=== PATIENT | male | born 1960 | race Caucasian/White ===

== ENCOUNTER → 2020-03-13 11:24 | Outpatient (CLI) | payer OTHER, SELFPAY ==
--- NOTE | ~2020-03-13 | XR_ITS ---
EXAMINATION: XR foot RT min 3V DATE: 03/13/2020 11:42 INDICATION: Swelling about the right second distal metatarsal. TECHNIQUE: Dorsoplantar, two oblique and lateral views of the right foot were obtained. COMPARISON: None. FINDINGS: Alignment is normal. No fracture. Joint spaces are normal. No cortical erosions or periosteal reactio n. Small Achilles and plantar calcaneal spurs. Soft tissues are unremarkable. IMPRESSION: 1. No acute osseous abnormality. Reviewed, dictated and finalized at location A. DRIVER
== END ==
PROVIDERS: PCP Family Medicine Adolescent Medicine; Visit Provider Family Medicine Adolescent Medicine
DX: M79.89 Other specified soft tissue disorders (principal)
CPT/HCPCS: 73630

== ENCOUNTER → 2020-10-11 11:06 | Outpatient (CLI) | payer OTHER, SELFPAY ==
--- NOTE | ~2020-10-11 | XR_ITS ---
XR_[id number]_CR DATE: 10/11/2020 11:55 INDICATION: Injury. Left chest wall pain. TECHNIQUE: PA chest. 4 views of the left ribs. COMPARISON: None FINDINGS: Normal heart size. Aortic arch calcification. No hilar or mediastinal enlargement. Calcifie d right pulmonary granuloma. No pulmonary infiltrate or consolidation, pleural effusion or pulmonary vascular congestion or pneumothorax. There is diffuse osteopenia. No displaced left rib fracture is evident. Degenerative spurring of the thoracic spine. IMPRESSION: No detected left rib fracture Osteopenia Reviewed, dictated and finalized at Location A. Reviewed, dictated and finalized at location A.
== END ==
PROVIDERS: PCP Family Medicine Adolescent Medicine; Visit Provider Family Medicine Adolescent Medicine
DX: S29.9XXA Unspecified injury of thorax, initial encounter (principal); M85.88 Other specified disorders of bone density and structure, other site
CPT/HCPCS: 71101

== ENCOUNTER 2022-01-09 14:45 | Outpatient (CLI) | payer BC, SELFPAY ==
--- NOTE | ~2022-01-09 | CT_ITS ---
EXAMINATION: CT lung screening DATE: 01/09/2022 15:14 INDICATION: Personal history of nicotine dependence, prior smoker with 40 pack year history TECHNIQUE: Computed tomography (CT) of the chest was performed without intravenous contrast. The dose -length product (DLP) was 325.48 mGy-cm. Automated exposure control and iterative reconstruction tech [employer] were employed. COMPARISON: None FINDINGS: There is moderate emphysema. There is a 3 mm nodule of the right lower lobe. Calcified pulm onary nodules and calcified subcarinal and right hilar lymph nodes are consistent with old granulomat ous disease. No pleural effusion or pneumothorax. No pathologically enlarged thoracic lymph nodes are identified. The heart size is normal. Calcified coronary artery atherosclerosis is noted. There is m oderate thoracic spondylosis. IMPRESSION: 1. Lung-RADS category 2: Benign appearance or behavior. Continue annual screening with noncontrast lo w-dose chest CT in 12 months. Reviewed, dictated and finalized at location F. LE LEADER IMPRESSION: 1. Lung-RADS category 2: Benign appearance or behavior. Continue annual screeni ng with noncontrast low-dose chest CT in 12 months.
== END 2022-01-09 14:46 | disposition home or self-care (01) ==
PROVIDERS: PCP Family Medicine Adolescent Medicine; Visit Provider Family Medicine Adolescent Medicine
DX: Z12.2 Encounter for screening for malignant neoplasm of respiratory organs (principal); Z87.891 Personal history of nicotine dependence
CPT/HCPCS: 71271

== ENCOUNTER 2023-01-19 01:04 | Day surgery (SDC) | payer BC, SELFPAY ==
[2023-01-12 08:18] VITALS: BMI 40.4
--- NOTE | 2023-01-14 09:42 | SUR.PREOP ---
Patient called regarding upcoming procedure. Reviewed preop instructions, appointment times, and procedure prep.
[2023-01-19 12:06] VITALS: BP 145/101; PULSE 67; RESP 18; TEMP 36.3; O2SAT 100
[2023-01-19] MEDS: LACTATED RINGERS 1,000 ML 150 ML IV CONT (12:24)
--- NOTE | 2023-01-19 12:28 | WPDANESEPPF ---
Anes - Initial Pre Proc Eval Procedure: Operation Date: 01/19/23 13:30 Proposed Procedures p Colonoscopy - Kan Lorenzo MD Date/Time: 01/19/23 12:28 Surgeon: Kan Lorenzo MD Pre Op Diagnosis: Anal Abscess,hemorrhoids Patient Data Age: 62 Gender: M Height: 1.68 m Weight: 108.7 kg Last Vital Signs Temp 97.3 F L 01/19/23 12:06 Pulse 67 01/19/23 12:06 Resp 18 01/19/23 12:06 BP 145/101 H 01/19/23 12:06 Pulse Ox 100 01/19/23 12:06 O2 Del Method Room Air 01/19/23 12:06 Allergies Allergy/AdvReac Type Severity Reaction Status Date / Time No Known Allergies Allergy Verified 01/19/23 12:05 Home Medications Medication Instructions Recorded Confirmed Type escitalopram oxalate 10 mg tablet 10 mg PO DAILY #90 tabs 12/18/22 01/12/23 Rx lisinopril 20 mg tablet 20 mg PO DAILY #90 tabs 12/18/22 01/12/23 Rx omeprazole 20 mg capsule,delayed 20 mg PO DAILY #90 caps 12/18/22 01/12/23 Rx release tamsulosin 0.4 mg capsule 0.4 mg PO DAILY #90 caps 12/18/22 01/12/23 Rx atorvastatin 10 mg tablet 10 mg PO DAILY 01/12/23 01/12/23 History Patient hx anesthesia problems: none Family hx anesthesia problems: none Results Review: All pre-operative results and documents have been reviewed as part of the pre-operative evaluation. [facility] Past Medical History Medical History Depression Essential (primary) hypertension Gastro-esophageal reflux disease without esophagitis Mitral valve prolapse Pure hypercholesterolemia, unspecified Surgical History Surgical History History of excision of pilonidal cyst x2 Hx of tonsillectomy Family History Family History Father Acute myocardial infarction Hypertension Malignant neoplasm of prostate Lung cancer Mother Acute myocardial infarction Lung cancer Social History Social History Smoking status: Current every day smoker Tobacco type: cigarettes and e-cigarettes/vaping Alcohol intake: current Drinks per week: 4 Alcohol use details: beer Substance use type: does not use Lack of Transportation: No Lack of Food: Never True Current Housing: I Have Housing Concerned About Future Housing: No Difficulty Paying Gas/Electric Bills: No Difficulty Paying for Meds: No Currently Unemployed: No Education: High School Diploma/GED Difficulty w/ Childcare or Family Care: No Living arrangements: with family Occupation/Education: retired Spiritual care concerns: No Anes - Eval Final PreProcedure Day of Procedure 01/19/23 12:28 Patient weight: obese Heart: regular rate and rhythm Lungs: clear to auscultation Airway: Mallampati scale class II Neurological: alert and oriented Last oral intake: >/= 8 hours ASA classification: III Emergent: no Anesthetic plan: proceed Anesthesia type and monitoring: general GIVS and standard monitoring Results Review: All pre-operative results and documents have been reviewed as part of the pre-operative evaluation. Informed Consent: The patient's anesthetic plan and its attendant risks and benefits were discussed with the patient/family/POA. Questions were solicited and answers provided to the satisfaction of the patient/family/POA.
--- NOTE | 2023-01-19 12:40 | PM.HPGS ---
History of Present Illness History of Present Illness Consent: Risks, benefits, and alternatives have been discussed and questions answered. Patient agrees to proceed with procedure. Chief complaint: Anal Abscess,hemorrhoids Narrative: Antonio Becker is a 62 year old male here for first screening colonoscopy, also history of perianal abscess Review of Systems Constitutional: Constitutional: Denies headache(s) and Denies weakness Eyes: Eyes: Denies blurry vision ENT: Reports Normal hearing present, Denies headache(s) and Denies neck pain Cardiovascular: Cardiovascular: Denies chest pain and Denies dyspnea Respiratory: Respiratory: Denies dyspnea Gastrointestinal: Gastrointestinal: Reports no additional gastrointestinal complaints Genitourinary: Genitourinary: Denies dysuria Musculoskeletal: Musculoskeletal: Denies neck pain Integumentary/Breasts: Skin/Breast: Denies dry skin Neurologic: Reports Normal hearing present, Denies headache(s) and Denies weakness Psychiatric: Psychiatric: Denies anxiety Endocrine: Endocrine: Denies change in body appearance Hematologic/Lymphatic: Hematologic/Lymphatic: Denies easy bleeding Allergic/Immunologic: Allergic/Immunologic: Denies urticaria PMFSH Past Medical History Medical History (Updated 01/19/23 @ 12:41 by Kan Lorenzo MD) Colon cancer screening Depression Essential (primary) hypertension Gastro-esophageal reflux disease without esophagitis Mitral valve prolapse Pure hypercholesterolemia, unspecified Surgical History Surgical History History of excision of pilonidal cyst x2 Hx of tonsillectomy Family History Family History Father Acute myocardial infarction Hypertension Malignant neoplasm of prostate Lung cancer Mother Acute myocardial infarction Lung cancer Social History Social History Smoking status: Current every day smoker Tobacco type: cigarettes and e-cigarettes/vaping Alcohol intake: current Drinks per week: 4 Alcohol use details: beer Substance use type: does not use Lack of Transportation: No Lack of Food: Never True Current Housing: I Have Housing Concerned About Future Housing: No Difficulty Paying Gas/Electric Bills: No Difficulty Paying for Meds: No Currently Unemployed: No Education: High School Diploma/GED Difficulty w/ Childcare or Family Care: No Living arrangements: with family Occupation/Education: retired Spiritual care concerns: No Meds Home Medications and Allergies Home Medications Medication Instructions Recorded Confirmed Type escitalopram oxalate 10 mg tablet 10 mg PO DAILY #90 tabs 12/18/22 01/12/23 Rx lisinopril 20 mg tablet 20 mg PO DAILY #90 tabs 12/18/22 01/12/23 Rx omeprazole 20 mg capsule,delayed 20 mg PO DAILY #90 caps 12/18/22 01/12/23 Rx release tamsulosin 0.4 mg capsule 0.4 mg PO DAILY #90 caps 12/18/22 01/12/23 Rx atorvastatin 10 mg tablet 10 mg PO DAILY 01/12/23 01/12/23 History Allergies Allergy/AdvReac Type Severity Reaction Status Date / Time No Known Allergies Allergy Verified 01/19/23 12:05 Vital Signs Vital Signs - 24 hr 01/19/23 12:06 Temperature 97.3 F L Pulse Rate 67 Respiratory Rate 18 Blood Pressure 145/101 H Pulse Oximetry 100 Oxygen Delivery Room Air Exam Const: General: comfortable and no acute distress HENMT: Face/Nose/Sinus: Normal nares present Eyes: General: appearance normal, both eyes and all related structures Neck: Neck: no JVD Resp: Auscultation: clear to auscultation bilaterally Cardio: Rate: regular rate Rhythm: regular rhythm GI: Inspection: non-distended GI Palp: Yes Soft to palpation Skin: General skin exam: normal color Neuro: General: gait normal Speech: normal speech Extrem: General: normal t
[2023-01-19 13:02] VITALS: BP 108/72; PULSE 73; RESP 20; O2SAT 96
[2023-01-19 13:12] VITALS: BP 111/78; PULSE 65; RESP 25; O2SAT 97
[2023-01-19 13:22] VITALS: BP 137/72; PULSE 65; RESP 23; O2SAT 99
== END 2023-01-19 13:26 | disposition home or self-care (01) ==
PROVIDERS: PCP Family Medicine Adolescent Medicine; Visit Provider Internal Medicine Gastroenterology
PROC: 0DJD8ZZ Inspection of Lower Intestinal Tract, Via Natural or Artificial Opening Endoscopic (ICD-10-PCS; CPT 45378; principal; 2023-01-19 13:30)
DX: Z12.11 Encounter for screening for malignant neoplasm of colon (principal); K57.30 Diverticulosis of large intestine without perforation or abscess without bleeding; K64.8 Other hemorrhoids; K64.4 Residual hemorrhoidal skin tags; F32.A Depression, unspecified; I10 Essential (primary) hypertension; K21.9 Gastro-esophageal reflux disease without esophagitis; E78.00 Pure hypercholesterolemia, unspecified; F17.210 Nicotine dependence, cigarettes, uncomplicated; F17.290 Nicotine dependence, other tobacco product, uncomplicated; F10.90 Alcohol use, unspecified, uncomplicated; Z79.899 Other long term (current) drug therapy
CPT/HCPCS: 45378; J2001; J2704; J7120

== ENCOUNTER 2023-01-27 12:39 | Outpatient (CLI) | payer BC, SELFPAY ==
--- NOTE | 2023-01-27 12:57 | ECG_ITS ---
Measurements Intervals [place] Rate: 64 P: 44 CT: 216 QRS: 32 QRSD: 93 T: 13 QT: 360 QTc: 374 Interpretive Statements SINUS RHYTHM WITH FIRST DEGREE AV BLOCK LOW QRS VOLTAGE IN PRECORDIAL LEADS [QRS DEFLECTION < 1.0 mV IN CHEST LEADS] NO PREVIOUS ECG AVAILABLE FOR COMPARISON Electronically Signed On 01-27-2023 13:37:53 [employer] by Celestina Bauman M.D.
== END 2023-01-27 12:40 | disposition home or self-care (01) ==
LOC: ANHSURGERY 12:44
PROVIDERS: PCP Family Medicine Adolescent Medicine; Visit Provider Surgery
DX: Z01.818 Encounter for other preprocedural examination (principal); I10 Essential (primary) hypertension; E78.00 Pure hypercholesterolemia, unspecified; E11.9 Type 2 diabetes mellitus without complications; R93.1 Abnormal findings on diagnostic imaging of heart and coronary circulation
CPT/HCPCS: 93005

== ENCOUNTER 2023-01-29 02:10 | Day surgery (SDC) | payer BC, SELFPAY ==
[2023-01-27 12:02] VITALS: BMI 39.0
--- NOTE | 2023-01-27 12:03 | PC.NURSE ---
Report to the Outpatient Waiting Room, entrance under the green pavilion located off [facility], at time _0900_ on date _[id number]_. Planned Procedure Time: _1100_. Time changes happen often and if your time is changed the preop area will call you the afternoon before. - You and your visitor will be asked to self-screen and do not enter if you have any COVID symptoms. - A mask is optional within the hospital at this time. Patients may have clear liquids (water, carbonated beverages, clear teas, apple juice) until 3 hours prior to surgery with a maximum of 20 ounces. - No food from midnight until time of surgery Take the following medications with a SIP of water the morning of surgery: ____None DO NOT STOP ANY OF YOUR OTHER PRESCRIPTION MEDICATIONS PRIOR TO SURGERY ?EXCEPT THE FOLLOWING Medications to discontinue per physician ____L-lysine Date to take last dose__Stop today. Please no make-up, nail french, hairspray, perfume, deodorant, or body powder the day of surgery. No jewelry (including any body piercings) or valuables the day of surgery, leave them at home. Please take a shower or bath the night before, or the morning of, surgery with an antibacterial soap. Wear comfortable, loose fitting clothing. - Jewelry must be removed prior to entering the operating room. Rings and piercings that are not removed may be cut off. - The hospital will not accept responsibility for valuables. - Please leave all valuables, including medications, at home the day of surgery. If you are going home after surgery, a licensed straight truck driver must drive you home. - NO public transportation without another adult if you receive anesthesia. - We recommend that an adult stay with you for 24 hours following discharge. - We also recommend that you do not drive, make important decision, drink alcoholic beverages, or take any drugs that were not prescribed by your health care provider for at least 24 hours after your discharge time. Follow any additional instructions given to you from your surgeon. If you or anyone in your household have experienced Covid symptoms in the past week, please notify your surgeon or the nurse liaison at the phone number below for possible testing. Telephone instructions given to _Jim__and asked if any additional questions and then verbalized understanding. Patient advised to call surgeon office or pre surgery nurse liaison [phone] if any additional questions.
[2023-01-29] VITALS (7 sets, daily range): BP systolic 123–149; BP diastolic 61–87; PULSE 60–97; RESP 12–20; TEMP 36.1–36.4; O2SAT 91–100
--- NOTE | 2023-01-29 07:27 | WPDHPUPDATE1 ---
History and Physical Update Update Date/Time: 01/29/23 07:27 History and Physical has been reviewed, including an updated exam of the patient. There are NO changes in the patient's condition. Risks, benefits, and alternatives have been discussed and questions answered. Patient agrees to proceed with procedure.
[2023-01-29 09:44] LABS: Glucose Point of Care 110 mg/dl (65-105)
[2023-01-29] MEDS: LACTATED RINGERS 1,000 ML 30 ML IV CONT ×2 (09:45→11:38)
[2023-01-29] MEDS: ACETAMINOPHEN 500 MG TABLET 1000 MG PO (09:45)
[2023-01-29] MEDS: KETOROLAC 15 MG/ML VIAL (*BKC) IV PUSH (09:45)
--- NOTE | 2023-01-29 10:15 | WPDANESEPPF ---
Anes - Initial Pre Proc Eval Procedure: Operation Date: 01/29/23 11:00 Proposed Procedures p Rectal Examination Under Anesthesia with Excision of Abscess Cavity, Hemorrhoidectomy - Melissa High MD Date/Time: 01/29/23 10:15 Surgeon: Melissa High MD Pre Op Diagnosis: perianal abscess,external hemorrhoids Patient Data Age: 62 Gender: M Height: 1.69 m Weight: 111.4 kg Last Vital Signs Temp 36.1 C L 01/29/23 09:45 Pulse 70 01/29/23 09:45 Resp 14 01/29/23 09:45 BP 144/87 H 01/29/23 09:45 Pulse Ox 94 01/29/23 09:45 O2 Del Method Room Air 01/29/23 09:45 Allergies Allergy/AdvReac Type Severity Reaction Status Date / Time No Known Allergies Allergy Verified 01/29/23 10:06 Home Medications Medication Instructions Recorded Confirmed Type escitalopram oxalate 10 mg tablet 10 mg PO DAILY #90 tabs 12/18/22 01/27/23 Rx lisinopril 20 mg tablet 20 mg PO DAILY #90 tabs 12/18/22 01/27/23 Rx omeprazole 20 mg capsule,delayed 20 mg PO DAILY #90 caps 12/18/22 01/27/23 Rx release tamsulosin 0.4 mg capsule 0.4 mg PO DAILY #90 caps 12/18/22 01/27/23 Rx atorvastatin 10 mg tablet 10 mg PO DAILY 01/12/23 01/27/23 History lysine 1,000 mg tablet 1,000 mg PO DAILY 01/27/23 01/27/23 History Laboratory Tests 01/29/23 09:41 POC Capillary Glucose 110 H mg/dl (65-105) Patient hx anesthesia problems: none Family hx anesthesia problems: none Results Review: All pre-operative results and documents have been reviewed as part of the pre-operative evaluation. [facility] Past Medical History Medical History Colon cancer screening Depression Essential (primary) hypertension Gastro-esophageal reflux disease without esophagitis Mitral valve prolapse Pure hypercholesterolemia, unspecified Surgical History Surgical History History of excision of pilonidal cyst x2 Hx of tonsillectomy Family History Family History Father Acute myocardial infarction Hypertension Malignant neoplasm of prostate Lung cancer Mother Acute myocardial infarction Lung cancer Social History Social History Smoking status: Former smoker Tobacco type: cigarettes and e-cigarettes/vaping Smoking end date: 10/01/13 Alcohol intake: current Drinks per week: 2 Alcohol use details: beer Substance use type: does not use Lack of Transportation: No Lack of Food: Never True Current Housing: I Have Housing Concerned About Future Housing: No Difficulty Paying Gas/Electric Bills: No Difficulty Paying for Meds: No Currently Unemployed: No Education: High School Diploma/GED Difficulty w/ Childcare or Family Care: No Living arrangements: with family Occupation/Education: retired Spiritual care concerns: No Anes - Eval Final PreProcedure Day of Procedure 01/29/23 10:15 Patient weight: obese Heart: regular rate and rhythm Lungs: clear to auscultation Airway: Mallampati scale class II Neurological: alert and oriented Last oral intake: >/= 8 hours ASA classification: III Emergent: no Anesthetic plan: proceed Anesthesia type and monitoring: general Results Review: All pre-operative results and documents have been reviewed as part of the pre-operative evaluation. Informed Consent: The patient's anesthetic plan and its attendant risks and benefits were discussed with the patient/family/POA. Questions were solicited and answers provided to the satisfaction of the patient/family/POA.
[2023-01-29] MEDS: ceFAZolin 2 GM/D5W 50 ML 2 GM/50 ML BAG IVPB (10:58)
[2023-01-29] MEDS: BUPIVACAINE/EPINEPHRINE 0.5% 50 ML VIAL INFILTRATE (11:15)
[2023-01-29] MEDS: LIDOCAINE HCL 2% GEL UROJET 10 ML PKG MUCOUS MEM (11:22)
--- NOTE | 2023-01-29 11:38 | P.OP_ITS ---
Procedure Note - Detailed Date of Procedure 01/29/23 Pre-op Diagnosis chronic perianal abscess, external hemorrhoids Post-op Diagnosis Same Procedure Performed Exam under anesthesia, external hemorrhoidectomy involving left lateral and ri ght anterior positions, excision of chronic perianal abscess cavity Surgeon Melissa High MD Anesthesia General Indications 62 y/o M c multiple external hemorrhoids c frequent flares causing pain, bleeding refractory to conservative measures. Patient also with noted chronic perianal abscess cavity. Findings multiple external hemorrhoids predominately in L lateral and R anterior, perianal chronic abscess cavity Description of Procedure The patient was taken to the operating room and placed in the modified lithotomy position. After adequate induction of general anesthesia, the patient was prepped and draped in the normal sterile fashion. A time-out was then done to verify the patient's identity, as well as the procedure being performed. I began by doing a digital exam. There was noted to be multiple external hemorrhoids, however no internal hemorrhoids were noted. At this point, a bilateral pudendal block was done. Then used the lone Star retractor to fur ther evaluate the anal canal as well as rectum, other than external hemorrhoids no other pathology was noted. I then began excising the external hemorrhoids using the hand-held LigaSure device. The hemorrhoids were noted to be in the left lateral and right anterior positions. Multiple hemorrhoids were excised using the LigaSure. The specimens will be sent to pathology for further review. Hemostasis was noted at all excision sites. I then placed a piece of Gelfoam covered with lidocaine jelly into the rectal vault. The patient also had a chronic abscess cavity in the perineum. I went ahead and excised this cavity with an elliptical incision. The cavity was noted to be in the subcutaneous tissue and excised in full. I then gained hemostasis with the Bovie cautery. No other pathology was noted. I then closed the subcutaneous tissue with 3-0 Vicryl suture. The skin was closed with 4-0 Monocryl subcuticular suture. The patient tolerated the procedure well and was extubated in the operating room postop. He will be transferred to the recovery room in stable condition. Implants Gelfoam covered with lidocaine jelly in the rectal vault Estimated Blood Loss 5 Drains No Packing Yes Pathology Yes Complications No immediate complications Condition Stable Disposition PACU [facility] Billing Surgery - Charge Forward: Surgery Billing
[2023-01-29] MEDS: fentaNYL CITRATE INJ (*CRX) 100 MCG/2 ML VIAL 25 MCG IV PUSH ×4 (11:57→12:15)
[2023-01-29] MEDS: oxyCODONE HCL (*CRX) 5 MG TAB IR PO (12:55)
== END 2023-01-29 13:22 | disposition home or self-care (01) ==
PROVIDERS: PCP Family Medicine Adolescent Medicine; Visit Provider Surgery
PROC: (CPT 11424; principal; 2023-01-29 11:00)
DX: K64.4 Residual hemorrhoidal skin tags (principal); L02.215 Cutaneous abscess of perineum; L72.0 Epidermal cyst; I10 Essential (primary) hypertension; E78.00 Pure hypercholesterolemia, unspecified; I34.1 Nonrheumatic mitral (valve) prolapse; K21.9 Gastro-esophageal reflux disease without esophagitis; F32.A Depression, unspecified; Z87.891 Personal history of nicotine dependence; E66.9 Obesity, unspecified; Z68.39 Body mass index [BMI] 39.0-39.9, adult
CPT/HCPCS: 11424; 12041; 46250; 82948; 88304; 93005; A9270; J0690; J1100; J1885; J2405; J2704; J3010; J7120

== ENCOUNTER → 2024-12-20 08:15 | Outpatient (CLI) | payer BC, SELFPAY ==
--- NOTE | ~2024-12-20 | XR_ITS ---
EXAMINATION: XR_RIBSBI_CR, 12/20/2024 8:22 CDT HISTORY: R07.89 RT side rib/side pain,7x months, no injury COMPARISON: No comparisons available. Findings: No acute fracture or malalignment. No significant degenerative changes. Soft tissues unremarkable. Impression: No acute fracture or malalignment. Reviewed, dictated and finalized at location P. Impression: No acute fracture or malalignment.
== END ==
LOC: EXPCRAD 08:17
PROVIDERS: PCP Family Medicine; Visit Provider Family Medicine
DX: R07.89 Other chest pain (principal)
CPT/HCPCS: 71110

== ENCOUNTER 2024-12-31 08:43 | Outpatient (CLI) | payer BC, SELFPAY ==
--- NOTE | ~2024-12-31 | CT_ITS ---
EXAMINATION: CT abdomen w con DATE: 12/31/2024 09:24 INDICATION: Right upper quadrant abdominal pain. TECHNIQUE: Computed tomography (CT) of the abdomen was performed with 100 mL Omnipaque 350 intravenous contrast. Automated exposure control and iterative reconstruction technique were employed. The dose-length product was 842.27 mGy-cm. COMPARISON: None. FINDINGS: The visualized portions of the lung bases demonstrate mild atelectasis. Calcified right lung nodules and calcified right hilar and mediastinal lymph nodes are consistent with old granulomatous disease. No pleural effusion. The heart size is normal. There are coronary artery calcifications. No pericardial effusion. The liver, gallbladder, pancreas, and adrenal glands are normal. Calcifications in the spleen are consistent with old granulomatous disease. There are cysts in the kidneys measuring up to 12 mm on the right. There is diverticulosis of the colon without evidence of diverticulitis. The appendix is normal. There are no pathologically enlarged lymph nodes. There is no free intraperitoneal fluid. There is mild thoracic and lumbar spondylosis. IMPRESSION: 1. No etiology for the patient's symptoms. Reviewed, dictated and finalized at location E. IVABLE MANAGER
[2024-12-31 09:15] LABS: Estimated Glomerular Filt Rate > 60
== END 2024-12-31 08:44 | disposition home or self-care (01) ==
PROVIDERS: PCP Family Medicine; Visit Provider Family Medicine
DX: R19.01 Right upper quadrant abdominal swelling, mass and lump (principal)
CPT/HCPCS: 74160; Q9967